=== PATIENT | male | born 2000 | race Caucasian/White ===

== ENCOUNTER 2022-03-13 11:30 | Emergency (ER) | payer OTHER, SELFPAY ==
[2022-03-13 11:30] VITALS: BP 142/93; PULSE 122; PULSE 127; RESP 14; RESP 16; TEMP 36.4; O2SAT 98; BMI 45.3
[2022-03-13 11:34] VITALS: BP 142/93; PULSE 95; RESP 18; TEMP 36.6; TEMP 37.2; O2SAT 97
--- NOTE | 2022-03-13 11:38 | SUR.PHASEI ---
1140 trauma bags x2 started.
--- NOTE | 2022-03-13 11:40 | ED.RN ---
[facility]. [facility] arrives
--- NOTE | 2022-03-13 11:43 | ED.RN ---
Addendum entered by Kody Mcmanus 03/13/22 11:56: unit #'s [id number], [id number] Original Note: bp after trauma blood started 129/72, hr 95 97%
--- NOTE | 2022-03-13 11:44 | ED.RN ---
pt. moved onto [facility].
--- NOTE | 2022-03-13 11:48 | EX.ED.GENINJ ---
HPI History of Present Illness Chief Complaint: Trauma Informant: patient and EMS Narrative Narrative: 21-year-old male was cutting trees with a chainsaw when he sustained a laceration of the left knee. Patient noted significant bleeding and applied a belt tourniquet and drove himself to his local EMS station. EMS noted arterial bleeding and then placed 2 tourniquets above the wound. They also administered 2 L normal saline and TXA. Patient notes he is otherwise healthy individual. EMS notes stable blood pressure and tachycardia. PFSH PFSH Medical History no medical history Surgical History no surgical history no surgical history Social History (Updated 03/13/22 @ 11:[address] Marshall Nuñez, DO) Smoking Status: Never smoker substance use type: does not use ROS ROS ED Constitutional Constitutional ED: Denies chills or weight loss Eyes Eyes: Denies change in vision or diplopia ENT ENT ED: Denies ear pain, rhinorrhea or sore throat Cardiovascular Cardiovascular: Denies chest pain, orthopnea, palpitations or racing heartbeat Respiratory/Chest Respiratory/Chest: Denies cough, dyspnea or orthopnea Gastrointestinal Gastrointestinal: Denies abdominal pain, diarrhea, nausea or vomiting Genitourinary Genitourinary ED: Denies dysuria, hematuria or urinary frequency Musculoskeletal Musculoskeletal: Denies arthralgias or myalgias Integumentary Denies abscess or rash Neurologic Neurologic: Denies headache(s) or weakness Psychiatric Psychiatric: Denies anxiety, depression, suicidal ideation or suicidal thoughts Endocrine Endocrinology: Denies polydipsia, polyphagia or polyuria Allergic/Immunologic Allergic/Immunologic ED: Denies mouth swelling, tongue swelling or urticaria EXAM Physical Exam Const Vital Signs: 03/13/22 11:30 03/13/22 11:34 03/13/22 11:30 Temperature 97.6 F L 97.8 F Temperature Source Temporal Pulse Rate 122 H 127 H Respiratory Rate 16 14 Respiratory Effort Normal Respiratory Depth Normal Respiratory Pattern Normal Blood Pressure 142/93 H 142/93 H Blood Pressure Mean 109 109 Pulse Ox 98 98 Oxygen Delivery Method Room Air Room Air Room Air 03/13/22 11:34 Temperature 98.9 F Temperature Source Temporal Pulse Rate 95 Respiratory Rate 18 Respiratory Effort Respiratory Depth Respiratory Pattern Blood Pressure 142/93 H Blood Pressure Mean 109 Pulse Ox 97 Oxygen Delivery Method Room Air Positive well nourished and well developed General Appearance ED: well developed HEENT Reports normocephalic, head/scalp atraumatic and moist mucous membranes Eyes PERRL and EOMs intact bilaterally Neck no lymphadenopathy, supple and no JVD Resp normal respiratory effort and clear to auscultation bilaterally Cardio regular rhythm and no murmurs Rate: tachycardic GI normal to inspection, nondistended, normoactive bowel sounds and non-tender Palpation: soft Back/Spine no CVA tenderness and normal ROM Extremity Extremity Narrative: There is a 7 cm horizontal laceration at the level of the knee. Bleeding appears controlled. There are 2 tourniquets superior to the laceration. The skin of the distal leg is dusky. General Extremety ED: Negative for edema General Extremity: Negative for edema Neuro oriented x3 and CN's II-XII intact bilaterally Sensorium / Orientation: alert Motor Exam: strength 5/5 throughout Psych mental status grossly normal Mood & Affect: Negative for depressed or tearful Skin no rashes or lesions noted and no wounds Skin Narrative: Patient has parlor and is diaphoretic. MDM MDM MDM Narrative Medical decision making narrative: 2 units of trauma blood were ordered. Patient's close were removed and a wet-to-dry dressing was placed over the laceration. [facility] had previously been called and arrived shortly after arrival here in emergency. Care the patient was changed to them and they have been accepted to [facility] for trauma eval Critical Care Time Critical Care Time: Yes Critical care time (excluding procedures): Including time spent:, Discussing w/Patient &/or Family/Cylinder Inspector [employer] Tester, Discussing w/Consultants, Arranging Admission or Transfer, Performing Direct Patient Care at Bedside and - (18 min) Discharge Plan Triage Chief Complaint: Trauma ED Provider: Marshall Nuñez Dx/Rx/DC Orders Clinical Impression: Laceration of leg, Major laceration of femoral artery Primary Care Provider: Care Physician,No Primary Referrals: Care Physician,No Primary [Primary Care Provider] - Disposition Disposition: Acute Care Hospital Discharge Location: [facility]
[2022-03-13 11:50] VITALS: BP 129/72; PULSE 95; RESP 16; TEMP 36.3; O2SAT 97
== END 2022-03-13 11:50 | disposition short-term general hospital (02) ==
PROVIDERS: Emergency Provider Emergency Medicine; Visit Provider Emergency Medicine
DX: S75.012A Minor laceration of femoral artery, left leg, initial encounter (principal); W29.3XXA Contact with powered garden and outdoor hand tools and machinery, initial encounter
CPT/HCPCS: 86850; 86900; 86901; 86920; 86922; 99285; J7040; P9016; A4216